=== PATIENT | male | born 1960 | race Caucasian/White ===

== ENCOUNTER → 2023-05-04 | Emergency (ER) | payer SELFPAY ==
[~2023-05-04] MED LIST: CEFTRIAXONE 2000 MG/VIAL ONE; CIPROFLOXACIN 400mg IV 400 MG/200 ML BAG IV ONE; FAMOTIDINE 20 MG/2 ML VIAL IV ONE; KETOROLAC 30 MG/ML INJ ONE; METRONIDAZOLE 500mg IVPB 500 MG/100 ML BAG IV ONE; MORPHINE 4 MG/ML SYR ONE; NA CHLORIDE 0.9% 1,000 ML ONE; NA CHLORIDE 0.9% 100 ML ONE; ONDANSETRON 4 MG/2 ML VIAL ONE
[2023-05-04 13:55] LABS: Absolute Eosinophils 0.2 K/uL (0-0.5); Absolute Lymphocytes (CBC) 1.9 K/uL (0.7-4.9); Basophils % 0.4 % (0-1.3); Eosinophils % 1.7 % (0-4.4); Hematocrit 39.9 % (39.6-49.0); Lymphocytes % 18.2 % (15.3-44.8); MCV 68.8 fL (80-100); MPV 8.7 fL (7.6-11.3); Platelets 175 thou/uL (152-406)
[2023-05-04 14:14] LABS: Albumin 3.8 g/dL (3.4-5.0); Albumin/Globulin Ratio 0.9 (1.1-1.8); Anion Gap 8.9 mEq/L (5.0-15.0); Bilirubin Total 0.5 mg/dL (0.2-1.0); Globulin 4.1 g/dL (2.3-3.5); Potassium 3.9 mEq/L (3.5-5.1); Protein, Total 7.9 g/dL (6.4-8.2)
--- NOTE | 2023-05-04 14:15 | RAD REPORT ---
EXAM DESCRIPTION: CTStone Protocol - 05/04/2023 1:39 pm CLINICAL HISTORY: FLANK PAIN COMPARISON: No comparisons TECHNIQUE: CT of the abdomen and pelvis was performed. All CT scans are performed using dose optimization technique as appropriate and may include automated exposure control or mA/KV adjustment according to patient size. FINDINGS: Lower chest: No acute abnormality. Liver: Cirrhotic liver morphology. Biliary: Cholecystectomy. Stomach: No significant focal abnormality. Duodenum: No significant focal abnormality. Pancreas: No significant abnormality. Spleen: Splenomegaly. Adrenal: No suspicious lesions. Kidney/ureter: No hydronephrosis. No renal calculi. Retroperitoneum: No retroperitoneal adenopathy. Vascular: No aneurysm. Bowel: Non perforated diverticulitis at the proximal descending colon.. Normal appendix. Peritoneum: No ascites or free air. Small fat containing inguinal hernias. Bladder: Grossly unremarkable. Reproductive: No adnexal masses. Bones: No acute fracture. Other: n/a IMPRESSION: 1. Non perforated diverticulitis of the proximal descending colon. 2. Cirrhotic liver morphology with splenomegaly that could indicate portal hypertension. 3. No urinary tract calculi . Normal appendix.
--- NOTE | 2023-05-04 15:02 | ER ---
Nurse's Notes [facility] Name: Conor Eden Age: 62 yrs Sex: Male : 1960 Arrival Date: 05/04/2023 Time: 13:11 Bed 5 Private MD: Diagnosis: Abdominal tenderness;Diverticulitis of large intestine without perforation or abscess without bleeding;Diverticulosis of large intestine without perforation or abscess without bleeding;Unspecified cirrhosis of liver;Other cirrhosis of liver;Splenomegaly, not elsewhere classified Presentation: 05/03 13:24 Chief complaint: Patient states: Left sided flank pain since last night, woke him up. nj1 Constant, nauseous. Denies dysuria. Coronavirus screen: Vaccine status: Patient reports receiving the 2nd dose of the covid vaccine. Ebola Screen: Patient denies travel to an Ebola-affected area in the 21 days before illness onset. Initial Sepsis Screen: Does the patient meet any 2 criteria? No. Patient's initial sepsis screen is negative. Does the patient have a suspected source of infection? No. Patient's initial sepsis screen is negative. Risk Assessment: Do you want to hurt yourself or someone else? Patient reports no desire to harm self or others. Onset of symptoms was May 03, 2023. 13:24 Method Of Arrival: Ambulatory [facility] 13:24 Acuity: CHRISTOPHER 3 nj1 Historical: - Allergies: 13:26 No Known Allergies; nj1 - PMHx: 13:26 Coronary atherosclerosis; Hypercholesterolemia; Hypertensive disorder; Diabetes nj1 mellitus; - PSHx: 13:26 Cholecystectomy; nj1 - Immunization history:: Client reports receiving the 2nd dose of the Covid vaccine. - Social history:: Smoking status: Patient denies any tobacco usage or history of. Screenin:34 [facility] ED Fall Risk Assessment (Adult) History of falling in the last 3 months, ph including since admission No falls in past 3 months (0 pts) Confusion or Disorientation No (0 pts) Intoxicated or Sedated No (0 pts) Impaired Gait No (0 pts) Mobility Assist Device Used No (0 pt) Altered Elimination No (0 pt) Score/Fall Risk Level 0 - 2 = Low Risk Oriented to surroundings, Maintained a safe environment, Provided non-skid footwear, Hourly rounding (assess needs \T\ fall precautionary measures) done. Abuse screen: Denies threats or abuse. Denies injuries from another. Nutritional screening: No deficits noted. Tuberculosis screening: No symptoms or risk factors identified. Assessment: 14:30 General: Appears in no apparent distress. comfortable, Behavior is calm, cooperative, ph appropriate for age. Pain: Complains of pain in anterior aspect of left lateral abdomen and posterior aspect of left lateral abdomen. Neuro: Level of Consciousness is awake, alert, obeys commands, Oriented to person, place, time, situation. Cardiovascular: Capillary refill < 3 seconds in bilateral fingers Patient's skin is warm and dry. Respiratory: Airway is patent Respiratory effort is even, unlabored, Respiratory pattern is regular, symmetrical. GI: Reports lower abdominal pain, nausea. Derm: Skin is pink, warm \T\ dry. 15:30 Reassessment: Patient appears in no apparent distress at this time. Patient and/or ph family updated on plan of care and expected duration. Pain level reassessed. Patient is alert, oriented x 3, equal unlabored respirations, skin warm/dry/pink. D/C pending completion of IV antibiotics Patient states feeling better. 16:59 Reassessment: Patient appears in no apparent distress at this time. Patient and/or ph family updated on plan of care and expected duration. Pain level reassessed. Patient is alert, oriented x 3, equal unlabored respirations, skin warm/dry/pink. Vital Signs: 13:24 BP 144 / 86; Pulse 71; Resp 18; Temp 97.8(O); Pulse Ox 97% on R/A; Weight 127.01 kg; nj1 Height 6 ft. 4 in. ; Pain 8/10; 15:00 BP 132 / 75; Pulse 64; Resp 18; Pulse Ox 98% on R/A; ph 16:00 BP 135 / 78; Pulse 68; Resp 18; Pulse Ox 99% on R/A; ph 13:24 Body Mass Index 34.08 (127.01 kg, 193.04 cm) nj1 13:24 Pain Scale: Adult [facility] ED Course: 13:14 Patient arrived in ED. ra3 13:20 John Mckeon MD is Attending Physician. jones 13:26 Triage completed. nj1 13:29 Arm band placed on right wrist. nj1 13:30 Patient has correct armband on for positive identification. Placed in gown. Bed in low ph position. Call light in reach. Side rails up X 1. teletypesetter monitor on. Pulse ox on. Door closed. Noise minimized. Warm blanket given. 13:42 CT Stone Protocol In Process Unspecified. EDMS 13:[address] via wheelchair. hb 14:15 Inserted saline lock: 22 gauge in right antecubital area, using aseptic technique. ph Blood collected. 14:19 Patricia Maloney, JONI is Primary Nurse. ph 15:02 Manas Vickers MD is Referral Physician. jones 15:02 Mounika Mcnamara MD is Referral Physician. jones 16:50 No provider procedures requiring assistance completed. IV discontinued, intact, ph bleeding controlled, No redness/swelling at site. Pressure dressing applied. Administered Medications: 14:18 Drug: NS 0.9% IV 1000 ml IV at 1 bolus Per protocol; 1000 mL bolus Route: IV; Rate: 1 iw bolus; Site: right antecubital; 15:30 Follow up: Response: No adverse reaction; IV Status: Completed infusion; IV Intake: ph 1000ml 14:18 Drug: Famotidine IVP 20 mg IVP once; dilute with 10 mL 0.9% NaCl; give over 2 minutes iw Route: IVP; Site: right antecubital; 15:00 Follow up: Response: No adverse reaction ph 14:18 Drug: Ondansetron IVP 4 mg IVP once; over 2 minutes Route: IVP; Site: right antecubital;iw 15:00 Follow up: Response: No adverse reaction ph 14:18 Drug: morphine IVP or IV 4 mg IVP once over 4 mins Route: IVP; Infused Over: 4 mins; iw Site: right antecubital; 15:00 Follow up: Response: No adverse reaction ph 14:19 Drug: Ketorolac IVP 30 mg IVP once Route: IVP; Site: right antecubital; iw 15:00 Follow up: Response: No adverse reaction; Pain is decreased ph 14:45 Drug: Rocephin - Rocephin (cefTRIAXone) IVPB 2 grams IVPB once over 30 mins; (mix in nj1 100 mL NS) Route: IVPB; Infused Over: 30 mins; Site: right antecubital; 16:46 Follow up: Response: No adverse reaction; IV Status: Completed infusion ph 14:45 Drug: metroNIDAZOLE IVPB 500 mg 100 ml IVPB at 200 ml/hr once over 30 mins Volume: 100 nj1 ml; Route: IVPB; Rate: 200 ml/hr; Infused Over: 30 mins; Site: right antecubital; 15:20 Follow up: Response: No adverse reaction; IV Status: Completed infusion ph 15:30 Follow up: Response: No adverse reaction ph 15:33 Drug: Ciprofloxacin IVPB 400 mg 200 ml IVPB once over 60 mins Volume: 200 ml; Route: ph IVPB; Infused Over: 60 mins; Site: right antecubital; 16:40 Follow up: Response: No adverse reaction; IV Status: Completed infusion ph 15:34 Drug: morphine IVP or IV 4 mg IVP once over 4 mins Route: IVP; Infused Over: 4 mins; ph Site: right antecubital; 16:48 Follow up: Response: No adverse reaction; Pain is decreased ph 16:44 Not Given (Other Intervention Used): [id number] mg PO once ph 16:44 Not Given (Other Intervention Used): mg PO once ph Medication: 16:59 VIS not applicable for this client. ph Intake: 15:30 IV: 1000ml; Total: 1000ml. ph Outcome: 15:02 Discharge ordered by . jones 16:58 Discharged to home ambulatory, ph 16:58 Condition: good 16:58 Discharge instructions given to patient, Instructed on discharge instructions, follow up and referral plans. medication usage, Demonstrated understanding of instructions, follow-up care, medications, Prescriptions given X 4, 17:00 Patient left the ED. ph Signatures: Dispatcher [employer] EDLA John Mckeon MD MD cha Williams, Irene, RN RN Patricia Maloney RN RN ph Baxter, Heather, RN RN hb Jaco, Norma, RN RN nj1 Alva, Ruby ra3
--- NOTE | 2023-05-04 15:02 | EDPHYS ---
Physician Documentation [facility] [place], [place] Name: Conor Eden Age: 62 yrs Sex: Male : 1960 Arrival Date: 05/04/2023 Time: 13:11 Bed 5 Private MD: ED Physician John Mckeon HPI: 05/03 14:19 This 62 yrs old Male presents to ER via Ambulatory with complaints of Flank jones Pain. 14:19 The patient complains of pain in the left low back and left mid back. The pain jones radiates. Onset: The symptoms/episode began/occurred 1 day(s) ago. Modifying factors: The symptoms are alleviated by nothing. the symptoms are aggravated by movement, palpation/percussion. Associated signs and symptoms: The patient has no apparent associated signs or symptoms. Severity of pain: At its worst the pain was mild moderate in the emergency department the pain is unchanged. The patient has not experienced similar symptoms in the past. Historical: - Allergies: 13:26 No Known Allergies; nj1 - PMHx: 13:26 Coronary atherosclerosis; Hypercholesterolemia; Hypertensive disorder; Diabetes nj1 mellitus; - PSHx: 13:26 Cholecystectomy; nj1 - Immunization history:: Client reports receiving the 2nd dose of the Covid vaccine. - Social history:: Smoking status: Patient denies any tobacco usage or history of. ROS: 14:21 Constitutional: Negative for fever, chills, and weight loss, Eyes: Negative for injury, jones pain, redness, and discharge, ENT: Negative for injury, pain, and discharge, Neck: Negative for injury, pain, and swelling, Cardiovascular: Negative for chest pain, palpitations, and edema, Respiratory: Negative for shortness of breath, cough, wheezing, and pleuritic chest pain, Back: Negative for injury and pain, : Negative for injury, bleeding, discharge, and swelling, MS/Extremity: Negative for injury and deformity, Skin: Negative for injury, rash, and discoloration, Neuro: Negative for headache, weakness, numbness, tingling, and seizure, Psych: Negative for depression, anxiety, suicide ideation, homicidal ideation, and hallucinations, Allergy/Immunology: Negative for hives, rash, and allergies, Endocrine: Negative for neck swelling, polydipsia, polyuria, polyphagia, and marked weight changes, Hematologic/Lymphatic: Negative for swollen nodes, abnormal bleeding, and unusual bruising, 14:21 Abdomen/GI: Positive for abdominal pain, of the anterior aspect of left lateral abdomen, posterior aspect of left lateral abdomen, left upper quadrant and left lower quadrant, Exam: 14:21 Constitutional: This is a well developed, well nourished patient who is awake, alert, jones and in no acute distress. Head/Face: Normocephalic, atraumatic. Eyes: Pupils equal round and reactive to light, extra-ocular motions intact. Lids and lashes normal. Conjunctiva and sclera are non-icteric and not injected. Cornea within normal limits. Periorbital areas with no swelling, redness, or edema. ENT: Nares patent. No nasal discharge, no septal abnormalities noted. Tympanic membranes are normal and external auditory canals are clear. Oropharynx with no redness, swelling, or masses, exudates, or evidence of obstruction, uvula midline. Mucous membranes moist. Neck: Trachea midline, no thyromegaly or masses palpated, and no cervical lymphadenopathy. Supple, full range of motion without nuchal rigidity, or vertebral point tenderness. No Meningismus. Chest/axilla: Normal chest wall appearance and motion. Nontender with no deformity. No lesions are appreciated. Cardiovascular: Regular rate and rhythm with a normal S1 and S2. No gallops, murmurs, or rubs. Normal PMI, no JVD. No pulse deficits. Respiratory: Lungs have equal breath sounds bilaterally, clear to auscultation and percussion. No rales, rhonchi or wheezes noted. No increased work of breathing, no retractions or nasal flaring. Back: No spinal tenderness. No costovertebral tenderness. Full range of motion. Male : Normal genitalia with no discharge or lesions. Skin: Warm, dry with normal turgor. Normal color with no rashes, no lesions, and no evidence of cellulitis. MS/ Extremity: Pulses equal, no cyanosis. Neurovascular intact. Full, normal range of motion. Neuro: Awake and alert, GCS 15, oriented to person, place, time, and situation. Cranial nerves II-XII grossly intact. Motor strength 5/5 in all extremities. Sensory grossly intact. Cerebellar exam normal. Normal gait. Psych: Awake, alert, with orientation to person, place and time. Behavior, mood, and affect are within normal limits. 14:21 Abdomen/GI: Inspection: abdomen appears normal, Bowel sounds: normal, Palpation: mild abdominal tenderness, in the anterior aspect of left lateral abdomen, posterior aspect of left lateral abdomen, left upper quadrant and left lower quadrant, Liver: no appreciated palpable abnormalities, Hernia: not appreciated, Vital Signs: 13:24 BP 144 / 86; Pulse 71; Resp 18; Temp 97.8(O); Pulse Ox 97% on R/A; Weight 127.01 kg; nj1 Height 6 ft. 4 in. ; Pain 8/10; 15:00 BP 132 / 75; Pulse 64; Resp 18; Pulse Ox 98% on R/A; ph 16:00 BP 135 / 78; Pulse 68; Resp 18; Pulse Ox 99% on R/A; ph 13:24 Body Mass Index 34.08 (127.01 kg, 193.04 cm) [facility] 13:24 Pain Scale: Adult [facility] MDM: 13:20 Patient medically screened. [facility] 05/03 13:27 Order name: CBC with Diff [facility] 05/03 13:27 Order name: CMP; Complete Time: 14:17 [facility] 05/03 13:27 Order name: Lipase; Complete Time: 14:17 [facility] 05/03 13:27 Order name: CT Stone Protocol; Complete Time: 14:17 [facility] 05/03 13:27 Order name: IV Saline Lock; Complete Time: 14:18 [facility] 05/03 13:27 Order name: Labs collected and sent; Complete Time: 14:18 [facility] Administered Medications: 14:18 Drug: NS 0.9% IV 1000 ml IV at 1 bolus Per protocol; 1000 mL bolus Route: IV; Rate: 1 iw bolus; Site: right antecubital; 15:30 Follow up: Response: No adverse reaction; IV Status: Completed infusion; IV Intake: ph 1000ml 14:18 Drug: Famotidine IVP 20 mg IVP once; dilute with 10 mL 0.9% NaCl; give over 2 minutes iw Route: IVP; Site: right antecubital; 15:00 Follow up: Response: No adverse reaction ph 14:18 Drug: Ondansetron IVP 4 mg IVP once; over 2 minutes Route: IVP; Site: right antecubital;iw 15:00 Follow up: Response: No adverse reaction ph 14:18 Drug: morphine IVP or IV 4 mg IVP once over 4 mins Route: IVP; Infused Over: 4 mins; iw Site: right antecubital; 15:00 Follow up: Response: No adverse reaction ph 14:19 Drug: Ketorolac IVP 30 mg IVP once Route: IVP; Site: right antecubital; iw 15:00 Follow up: Response: No adverse reaction; Pain is decreased ph 14:45 Drug: Rocephin - Rocephin (cefTRIAXone) IVPB 2 grams IVPB once over 30 mins; (mix in nj1 100 mL NS) Route: IVPB; Infused Over: 30 mins; Site: right antecubital; 16:46 Follow up: Response: No adverse reaction; IV Status: Completed infusion ph 14:45 Drug: metroNIDAZOLE IVPB 500 mg 100 ml IVPB at 200 ml/hr once over 30 mins Volume: 100 nj1 ml; Route: IVPB; Rate: 200 ml/hr; Infused Over: 30 mins; Site: right antecubital; 15:20 Follow up: Response: No adverse reaction; IV Status: Completed infusion ph 15:30 Follow up: Response: No adverse reaction ph 15:33 Drug: Ciprofloxacin IVPB 400 mg 200 ml IVPB once over 60 mins Volume: 200 ml; Route: ph IVPB; Infused Over: 60 mins; Site: right antecubital; 16:40 Follow up: Response: No adverse reaction; IV Status: Completed infusion ph 15:34 Drug: morphine IVP or IV 4 mg IVP once over 4 mins Route: IVP; Infused Over: 4 mins; ph Site: right antecubital; 16:48 Follow up: Response: No adverse reaction; Pain is decreased ph 16:44 Not Given (Other Intervention Used): [id number] mg PO once ph 16:44 Not Given (Other Intervention Used): [id number] mg PO once ph Disposition Summary: 05/04/23 15:02 Discharge Ordered Notes: Location: Home jones Problem: new jones Symptoms: have improved jones Condition: Stable jones Diagnosis - Abdominal tenderness jones - Diverticulitis of large intestine without perforation or abscess without bleeding jones - Diverticulosis of large intestine without perforation or abscess without bleeding jones - Unspecified cirrhosis of liver jones - Other cirrhosis of liver jones - Splenomegaly, not elsewhere classified jones Followup: jones - With: Private Physician - When: 2 - 3 days - Reason: Recheck today's complaints, Continuance of care, Re-evaluation by your physician Followup: jones - With: Manas Vickers MD - When: 2 - 3 days - Reason: Recheck today's complaints, Continuance of care, Re-evaluation by your physician Followup: jones - With: Mounika Mcnamara MD - When: 5 - 6 days - Reason: Recheck today's complaints, Re-evaluation by your physician Discharge Instructions: - Discharge Summary Sheet jones - Abdominal Pain, Adult jones - Cirrhosis jones - High-Fiber Eating Plan jones - Diverticulitis jones - Diverticulosis jones - Diverticulitis, [id number] [facility] - Abdominal Pain, Adult, [id number] [facility] Forms: - Medication Reconciliation Form [facility] - Thank You Letter jones - Antibiotic Education jones - Prescription Opioid Use jones - Patient Portal Instructions [facility] - Leadership Thank You Letter jones - Work release form ph - Family Work Release ph Prescriptions: - ondansetron 4 mg Oral Tablet,disintegrating - take 1 tablet ORAL route every 6-8 hours for 24 hours; 20 tablet; Refills: 0, [facility] Product Selection Permitted - Colace 100 mg Oral Tablet - take 1 tablet ORAL route every 12 hours; 14 tablet; Refills: 0, Product [facility] Selection Permitted - Flagyl 500 mg Oral Tablet - take 1 tablet ORAL route every 6 hours for 10 days; 40 tablet; Refills: 0, [facility] Product Selection Permitted - Cipro 500 mg Oral tablet - take 1 tablet ORAL route every 12 hours for 10 days; 20 tablet; Refills: 0, [facility] Product Selection Permitted - dicyclomine 20 mg Oral tablet - take 1 tablet ORAL route 4 times per day; 28 tablet; Refills: 0, Product [facility] Selection Permitted Signatures: Dispatcher [employer] John Constantino MD MD cha Williams, Irene, RN RN Patricia Maloney RN RN Yvonne Glaser RN RN nj1
[2023-05-04 17:07] VITALS: TEMP 97.8
[2023-05-04 17:25] LABS: Anisocytosis 2+; Blood Morphology Comment NOTED (NOT SEEN); Platelet Estimate ADEQ; Poikilocytosis 2+; White Blood Cell Scan OK (OK)
[2023-05-04 17:33] VITALS: BP 135/78; O2SAT 99
== END ==
LOC: ER 13:11
DX: K57.32 Diverticulitis of large intestine without perforation or abscess without bleeding (principal); K57.30 Diverticulosis of large intestine without perforation or abscess without bleeding; K74.69 Other cirrhosis of liver; R16.1 Splenomegaly, not elsewhere classified
CPT/HCPCS: 36415; 74176; 76377; 80053; 83690; 85025; 96365; 96367; 96368; 96375; 99285; J0696; J0744; J2405; J7030